=== PATIENT | male | born 1955 | race Caucasian/White ===

== ENCOUNTER → 2019-10-10 10:10 | Outpatient (CLI) | payer MEDICARE, SELFPAY ==
--- NOTE | ~2019-10-10 | CT_ITS ---
EXAMINATION: CT lung screening EXAM DATE: 10/10/2019 10:29 INDICATION: Personal history of nicotine dependence. Prostate cancer. TECHNIQUE: Spiral low dose CT of the chest without contrast. Axial, coronal and sagittal images were reviewed. The dose-length product (DLP) for this examination was 209.83 mGy-cm. The exposure was t ailored according to patient size (auto mA exposure control), and iterative reconstruction (ASIR) was used as additional dose reduction technique. Comparison is made to prior examination from 06/18/2017 . FINDINGS: The lungs are clear. Tracheobronchial tree is patent. There is no mediastinal, hilar o r axillary lymphadenopathy. Small pericardial effusion, increasing quantity compared to 2017. There is moderate emphysema and hyperinflation. There is no pneumothorax. Heart normal in size. No ev idence of coronary arterial calcification. Upper abdomen is unremarkable. There is mild thoracic sp ondylosis without osteoblastic or osteolytic lesions identified. There are old right-sided rib frac tures. IMPRESSION: Lung-RADS category 1, negative (<1%chance of malignancy); recommend continued LDCT screen ing in 1 year. Reviewed, dictated and finalized at location A. . MANAGER IMPRESSION: Lung-RADS category 1, negative (<1%chance of malignancy); recommend continued LDCT screening in 1 year.
== END ==
PROVIDERS: Visit Provider Nurse Practitioner Family
DX: Z12.2 Encounter for screening for malignant neoplasm of respiratory organs (principal); Z87.891 Personal history of nicotine dependence
CPT/HCPCS: G0297

== ENCOUNTER 2020-01-16 11:46 | Outpatient (CLI) | payer MEDICARE, SELFPAY ==
--- NOTE | ~2020-01-16 | XR_ITS ---
XR chest 2V 01/16/2020 12:05 Indication: Bronchitis. Procedure: PA and lateral views of the chest Comparison: Comparison to multiple prior studies sequentially, with oldest reviewed study dated 04/2011. Findings: There is left perihilar and bibasilar airspace disease. Heart size normal. No pleural effusion or pne umothorax. No acute osseous abnormality. Impression: 1: Left perihilar and bibasilar airspace disease, consistent with pneumonia. Reviewed, dictated and finalized at location A. Impression: 1: Left perihilar and bibasilar airspace disease, consistent with pneumonia.
== END 2020-01-16 11:47 | disposition home or self-care (01) ==
PROVIDERS: PCP Family Medicine; Visit Provider Family Medicine
DX: J40 Bronchitis, not specified as acute or chronic (principal); R91.8 Other nonspecific abnormal finding of lung field
CPT/HCPCS: 71046

== ENCOUNTER 2020-01-27 09:18 | Outpatient (CLI) | payer MEDICARE, SELFPAY ==
--- NOTE | ~2020-01-27 | XR_ITS ---
XR chest 2V DATE: 01/27/2020 09:34 INDICATION: Pneumonia follow-up TECHNIQUE: PA and lateral views COMPARISON: 01/16/2020 PA and lateral chest 10/10/2019 CT lung screening FINDINGS: Normal heart size. No hilar or mediastinal enlargement. The lungs are moderately hyperinfla sofia but clear of infiltrate or consolidation. No pleural effusion or pulmonary vascular congestion or pneumothorax is detected. IMPRESSION: Bilateral hyperinflation suggesting COPD No active cardiopulmonary disease Reviewed, dictated and finalized at location A.
== END 2020-01-27 09:19 | disposition home or self-care (01) ==
PROVIDERS: PCP Family Medicine; Visit Provider Family Medicine
DX: J18.9 Pneumonia, unspecified organism (principal)
CPT/HCPCS: 71046